=== PATIENT | male | born 1985 | race Two or more races ===

== ENCOUNTER 2017-01-10 13:43 | Emergency (ER) | payer OTHER ==
[~2017-01-10] VITALS: Ht 175.3 cm; Wt 92.1 kg
--- NOTE | 2017-01-10 13:45 | NUR ---
PT BIBRA FROM HOME TO ER BED 03. PT AGITATED ENERGY PROFESSIONAL C/O SEVERE HEADACHE. PT ADMITS TO DRINKING [employer]GNA[employer]. GOWNED AND PLACED ON MONITOR.STABLE VITALS. NAD NOTED. AWAITING MD MEDINA.
--- NOTE | 2017-01-10 14:04 | NUR ---
INGRID ASSISTANT EXECUTIVE HOUSEKEEPER AT BEDSIDE FOR EVAL.
--- NOTE | 2017-01-10 14:25 | NUR ---
IV LINE STARTED BLOOD DRAWN AND SENT TO LAB.
[2017-01-10] MEDS ORDERED: ONDANSETRON HCL/PF 4 MG/2 ML VIAL IVP ONE (14:30)
[2017-01-10] MEDS ORDERED: OLANZAPINE 10 MG VIAL IM ONE ×2 (14:30)
[2017-01-10] MEDS ORDERED: diphenhydrAMINE HCL 50 MG/ML VIAL IV ONE (14:30)
[2017-01-10] MEDS ORDERED: METOCLOPRAMIDE HCL 10 MG/2 ML VIAL IV ONE (14:30)
[2017-01-10] MEDS ORDERED: IV NS 0.9% 1,000 ML BAG IV ONE (14:30)
[2017-01-10] MEDS ORDERED: ACETAMINOPHEN ES 500 MG TABLET PO ONE (14:30)
--- NOTE | 2017-01-10 14:30 | NUR ---
PT AGITATED, YELLING STATING "MY HEAD IS HURTING REAL BAD." INGRID ANTENNA SPECIALIST MADE AWARE. PT SHOWED ME A PICTURE OF ZYPREXIA STATING IT WARKS FOR HIM.
[2017-01-10 14:32] LABS: BASOPHILS # (AUTO) 0.2 /CMM (0.0-0.2); BASOPHILS % (AUTO) 2.1 % (0.0-2.0); EOSINOPHILS # (AUTO) 0.1 /CMM (0.0-0.7); EOSINOPHILS % (AUTO) 1.2 % (0.0-6.0); HEMATOCRIT 47 % (39-51); LYMPHOCYTES # (AUTO) 2.5 /CMM (0.8-4.8); LYMPHOCYTES % (AUTO) 26.6 % (20.0-44.0); MEAN CORPUSCULAR HEMOGLOBIN 29 PG (26.0-33.0); MEAN CORPUSCULAR HGB CONC 34 g/dl (31.0-36.0); MEAN CORPUSCULAR VOLUME 86 fL (80-96); MONOCYTES # (AUTO) 0.6 /CMM (0.1-1.30); MONOCYTES % (AUTO) 6.2 % (2.0-12.0); NEUTROPHILS # (AUTO) 5.9 /CMM (1.8-8.9); NEUTROPHILS % (AUTO) 63.9 % (43.0-81.0); PLATELET COUNT (AUTO) 220 /CMM (150-450); RDW COEFFICIENT OF VARIATION 11.7 (11.5-15.0); RED BLOOD CELL COUNT(AUTO) 5.49 MIL/uL (4.5-6.0); WHITE BLOOD COUNT (AUTO) 9.3 K/uL (4.3-11.0)
[2017-01-10] MEDS ORDERED: diphenhydrAMINE HCL 50 MG/ML VIAL ONE (14:43)
[2017-01-10] MEDS ORDERED: ONDANSETRON HCL/PF 4 MG/2 ML VIAL ONE (14:43)
[2017-01-10] MEDS ORDERED: ACETAMINOPHEN ES 500 MG TABLET ONE ×2 (14:43→14:44)
[2017-01-10] MEDS ORDERED: METOCLOPRAMIDE HCL 10 MG/2 ML VIAL ONE ×2 (14:43→14:52)
[2017-01-10 14:50] LABS: INR 0.87 (0.87-1.13)
[2017-01-10 14:55] LABS: CALCIUM, SERUM 9.2 mg/dL (8.5-10.1); CREATININE 0.9 mg/dL (0.6-1.3); POTASSIUM 3.5 mmol/L (3.5-5.1)
[2017-01-10 15:07] LABS: APPEARANCE,URINE Slightly Cloudy (CLEAR); BILIRUBIN,URINE Negative (NEGATIVE); BLOOD, URINE Trace-intact Ery/uL (NEGATIVE); COLOR,URINE Light yellow (YELLOW); KETONES,URINE Negative (NEGATIVE); LEUKOCYTE ESTERASE ,URINE Negative (NEGATIVE); NITRITE, URINE Negative (NEGATIVE); PROTEIN,URINE Negative (NEGATIVE); UGLUCOSE Negative (NEGATIVE); UROBILINOGEN,URINE 0.2 EU/dL (0.2)
--- NOTE | 2017-01-10 15:25 | NUR ---
PT SLEEPING, AROUSABLE ON VERBAL STIMULI. ON MONITOR W/ STABLE VITALS NOTED. WILL CONTINUE TO MONITOR.
[2017-01-10 15:26] LABS: RBC,URINE 0-2 /HPF (0-2)
[2017-01-10 15:27] LABS: BACTERIA,URINE Rare /HPF (None Seen); SQUAMOUS EPITHELIAL CELL,UR Few /HPF (None Seen); WBC,URINE 0-2 /HPF (0-3)
--- NOTE | 2017-01-10 16:04 | NUR ---
CALLED LISANDRO SCHEDULE MANAGER.
--- NOTE | 2017-01-10 17:34 | NUR ---
IV removed. Catheter intact and site benign. Pressure and 4x4 applied to site. No bleeding noted. Patient discharged to home in stable condition. Written and verbal after care instructions given. Patient verbalizes understanding of instruction. ambulatory with a steady gait. instructed not to drive. pt verbalize understanding. pt accompanied by father
[2017-01-10 17:36] VITALS: BP 124/68
== END 2017-01-10 17:36 | disposition home or self-care (01) ==
LOC: ER 13:45
DX: R51 Headache (principal); F10.10 Alcohol abuse, uncomplicated; F17.200 Nicotine dependence, unspecified, uncomplicated
CPT/HCPCS: 36415; 70450; 80048; 80305; 81001; 85025; 85730; 96372; 96374; 96375; 99285; 99406; A4606; G0480; J1200; J2405; J2765 ×2; J3490; Z7610; 81000-TC

== ENCOUNTER 2017-04-04 16:48 | Emergency (ER) | payer OTHER ==
[~2017-04-04] VITALS: Ht 172.7 cm; Wt 83.9 kg
[2017-04-04 16:48] VITALS: BP 115/79
== END 2017-04-04 17:30 | disposition home or self-care (01) ==
LOC: ER 16:50
DX: F41.9 Anxiety disorder, unspecified (principal); K21.9 Gastro-esophageal reflux disease without esophagitis; F17.200 Nicotine dependence, unspecified, uncomplicated
CPT/HCPCS: 99283; A4606; Z7610

== ENCOUNTER 2017-06-14 12:08 | Emergency (ER) | payer OTHER ==
[~2017-06-14] VITALS: Ht 172.7 cm; Wt 77.1 kg
[2017-06-14 12:12] VITALS: BP 143/94
--- NOTE | 2017-06-14 12:20 | NUR ---
Patient presents to er c/o low back pain x 1 month, anxiety. a/ox 4. breathing even and unlabored. no sob, nad, vitals stable. safety and comfort measures in place. awaiting md orders.
== END 2017-06-14 12:58 | disposition home or self-care (01) ==
LOC: ER 12:12
DX: S39.012A Strain of muscle, fascia and tendon of lower back, initial encounter (principal); F41.9 Anxiety disorder, unspecified; F10.10 Alcohol abuse, uncomplicated; F17.200 Nicotine dependence, unspecified, uncomplicated; X58.XXXA Exposure to other specified factors, initial encounter; Y93.89 Activity, other specified; Y92.89 Other specified places as the place of occurrence of the external cause; Y99.8 Other external cause status
CPT/HCPCS: A4606; Z7502; Z7610

== ENCOUNTER 2017-08-09 13:04 | Emergency (ER) | payer OTHER ==
[~2017-08-09] VITALS: Ht 172.7 cm; Wt 74.8 kg
[2017-08-09 13:50] LABS: APPEARANCE,URINE Clear (CLEAR); BILIRUBIN,URINE SMALL (NEGATIVE); BLOOD, URINE Negative Ery/uL (NEGATIVE); COLOR,URINE Yellow (YELLOW); KETONES,URINE 15 (NEGATIVE); LEUKOCYTE ESTERASE ,URINE Negative (NEGATIVE); NITRITE, URINE Negative (NEGATIVE); PH,URINE 7.5 (5.0-8.0); PROTEIN,URINE 30 mg/dl (NEGATIVE); UGLUCOSE Negative (NEGATIVE)
[2017-08-09 13:52] LABS: BACTERIA,URINE Few /HPF (None Seen); RBC,URINE 0-2 /HPF (0-2); SQUAMOUS EPITHELIAL CELL,UR RARE /HPF (None Seen); WBC,URINE 0-2 /HPF (0-3)
[2017-08-09 13:53] LABS: MUCUS,URINE Few /LPF (None Seen)
--- NOTE | 2017-08-09 14:35 | NUR ---
ULTRASOUND AT BEDSIDE.
[2017-08-09 15:08] VITALS: BP 116/68
== END 2017-08-09 15:11 | disposition home or self-care (01) ==
LOC: ER 13:06
DX: N50.819 Testicular pain, unspecified (principal); F10.10 Alcohol abuse, uncomplicated; Y90.9 Presence of alcohol in blood, level not specified; F17.200 Nicotine dependence, unspecified, uncomplicated
CPT/HCPCS: 76870-TC; 81000-TC; 87086-TC; A4606; Z7610

== ENCOUNTER 2017-08-26 12:42 | Emergency (ER) | payer OTHER ==
[~2017-08-26] VITALS: Ht 177.8 cm; Wt 86.2 kg
[2017-08-26 12:46] VITALS: BP 129/69
== END 2017-08-26 13:13 | disposition home or self-care (01) ==
LOC: ER 12:43
DX: N50.89 Other specified disorders of the male genital organs (principal); K14.6 Glossodynia; F10.10 Alcohol abuse, uncomplicated; F17.200 Nicotine dependence, unspecified, uncomplicated; Y90.9 Presence of alcohol in blood, level not specified
CPT/HCPCS: A4606; Z7610